=== PATIENT | female | born 1960 | race Caucasian/White ===

== ENCOUNTER → 2017-01-08 | Outpatient (CLI) | payer MEDICAID ==
[~2017-01-08] VITALS: Ht 162.6 cm; Wt 89.1 kg
[~2017-01-08] MED LIST: CARI-316; DOBUTamine 1000MCG/ML 250 ML IV ONE; DOBUTamine 1000MCG/ML 250 ML IV SCH; HYDR10TA35; IPRA0.035; NAPR-228; PROVENTIL; PSEU60TA26; SIMV-8
[2017-01-08 11:30] VITALS: BP 115/69
[2017-01-08 13:10] VITALS: BP 110/72
== END | disposition home or self-care (01) ==
LOC: Rad HDHVI 09:54
PROVIDERS: ATTEND Internal Medicine Cardiovascular Disease
DX: I50.42 Chronic combined systolic (congestive) and diastolic (congestive) heart failure (principal); J44.9 Chronic obstructive pulmonary disease, unspecified; E78.00 Pure hypercholesterolemia, unspecified; I25.10 Atherosclerotic heart disease of native coronary artery without angina pectoris
CPT/HCPCS: 78452; 93005; 93306; 96374; 96375; A9500; G0463; J1250